=== PATIENT | female | born 1980 | race African-American/Black ===

== ENCOUNTER 2025-01-04 11:25 | Emergency (ER) | payer BC, SELFPAY ==
[2025-01-04 11:31] VITALS: BP 127/82
[2025-01-04 12:01] LABS: % Basophils 0.7 % (0-2); % Eosinophils 9.2 % (0-6); % Immature Granulocytes 0.2 % (0-0.5); % Lymphocytes 25.3 % (20.5-51.1); % Monocytes 14.5 % (1.7-9.3); % Neutrophils 50.1 % (42.2-75.2); Absolute Eosinophils 0.4 10^3/uL (0-0.7); Absolute Lymphocytes 1.1 10^3/uL (1.2-3.4); Absolute Monocytes 0.6 10^3/uL (0.1-0.6); Absolute Neutrophils 2.2 10^3/uL (1.4-6.5); Hematocrit 39.4 % (37.0-47.0); Hemoglobin 13.4 g/dL (12.0-16.0); Mean Corpuscular Hgb 27.4 pg (27.0-31.0); Mean Corpuscular Volume 80.6 fL (81.0-99.0); Mean Platelet Volume 9.5 fL (7.4-10.4); Nucleated Red Blood Cells % 0 %; Platelet Count 301 10^3/uL (130-400); Red Blood Cell Count 4.89 10^6/uL (4.20-5.40); Red Cell Dist. Width 13.3 % (11.5-14.5); White Blood Cell Count 4.4 10^3/uL (4.8-10.8)
[2025-01-04 12:10] LABS: INR 0.98; PT 13.3 Sec (11.4-14.6)
[2025-01-04 12:21] LABS: Troponin I 0.028 ng/ml
[2025-01-04 12:52] LABS: ALT (SGPT) 17 U/L (0-35); AST (SGOT) 26 U/L (14-36); Alkaline Phosphatase 64 U/L (38-126); Blood Urea Nitrogen 9 mg/dl (7-17); Calcium 9.4 mg/dl (8.4-10.2); Carbon Dioxide 25 mmol/L (22-30); Chloride 103 mmol/L (98-107); Glucose 97 mg/dl (70-99); Lipase 283 U/L (23-300); Potassium 3.8 mmol/L (3.5-5.1); Sodium 137 mmol/L (135-145); Total Bilirubin 0.7 mg/dl (0.2-1.3); Total Protein 6.9 g/dl (6.3-8.2); eGFR > 60.00
[2025-01-04 13:04] VITALS: BP 116/73
--- NOTE | 2025-01-04 13:44 | ED.GENMED ---
History of Present Illness
<Amie Norton PA-C - Last Filed: 01/04/25 19:06>
General
Chief Complaint: Chest Pain
Source: patient
Exam Limitations: none
Time Seen by Provider: 01/04/25 12:59
Nursing documentation reviewed up to this point in time: agreed with
History of Present Illness
History of Present Illness:
This is a 44 y/o female with a pmh of asthma, pericarditis, lupus, anti-phospholipid syndrome, presents to the emergency department today with concerns of chest pain x2 days. Patient states that the symptoms all started around a week ago when she
started to feel some pressure in the middle of her chest. This resolved spontaneously. Then, she stated that she ate a soy containing product 3 days ago and started develop nausea vomiting. She is allergic to soy. She then started developed
chest pressure again in a band across her chest and feels like the symptoms have been getting progressively worse. She feels like the pain is worse with sitting up. She has had pericarditis in the past which was treated as an outpatient with
NSAIDs. She currently does not follow with cardiology. Patient also notes exertional shortness of breath, lightheadedness, and dizziness with ambulating. She denies syncopal episodes. She notes that a few days ago, she did take a flight to
[place] which was 6 hours in length. She denies OCP use.
Review of Systems
<Amie Norton PA-C - Last Filed: 01/04/25 19:06>
Review of Systems
All Other Systems: ROS reviewed and negative except as documented in HPI and ROS
Phy Exam
<Amie Norton PA-C - Last Filed: 01/04/25 19:06>
Physical Exam
Physical Exam:
General: Patient is well appearing and in no acute distress; non-toxic
Skin: Warm and dry, no rashes or lesions
Head: Normocephalic, atraumatic
Eyes: Sclera non-icteric. EOMs intact.
Cardiac: Regular rate and rhythm, no murmurs
Peripheral Vascular: No lower extremity swelling or edema, 2+ dorsalis pedis pulses bilaterally
Pulm: Normal respiratory effort, no wheezes, rales, or rhonchi
Abdomen: No abdominal tenderness to palpation
Musculoskeletal: Reproducible chest tenderness noted over the external chest wall
Neuro: CN II-XII intact, no focal neurologic deficits.
Psychiatric: Appropriate mood and affect.
Scores
<Amie Norton PA-C - Last Filed: 01/04/25 19:06>
Heart Score for Chest Pain Patients
STEMI patient?: No
History: Slightly or Non-Suspicious
ECG: Normal
Age: </= 45 years
Risk Factors: No Risk Factors
Troponin: </= Normal Limit
Heart Score for Chest Pain Patients: 0
Heart Score Risk: 2.5% MACE over next 6 weeks
Course
<Amie Norton PA-C - Last Filed: 01/04/25 19:06>
Orders/Labs/Results
Orders:
Orders
01/04/25 11:25
EKG [Electrocardiogram (*1)] Urgent
Reason for Study: Chest Pain
EKG- Treatment ONCE
CR Chest - 2 Views Urgent
Comment:
Reason For Exam: chest pain
01/04/25 11:46
Complete Blood Count/With Diff Urgent
Comprehensive Metabolic Panel Urgent
HCG, Serum Qualitative Screen Urgent
Comment: ADD ON
Lipase Urgent
Prothrombin Time Urgent
Troponin I Urgent
01/04/25 13:42
D-Dimer Urgent
01/04/25 14:25
Electrocardiogram (*1) Urgent
Reason for Study: Chest Pain
01/04/25 14:32
Troponin I Urgent
01/04/25 14:59
CT Chest PE Study Urgent
Comment:
Reason For Exam: chest pain, shortness of breath, dizziness
01/04/25 15:15
Add On- LAB Urgent
Tests Added?: HCG Qual
01/04/25 16:57
Ibuprofen [Motrin] 400 mg PO NOW STA
Abnormal Lab Results
01/04/25 01/04/25
11:46 13:42
WBC 4.4 L 10^3/uL
(4.8-10.8)
MCV 80.6 L fL
(81.0-99.0)
Absolute Lymphs (auto) 1.1 L 10^3/uL
(1.2-3.4)
Monocytes % 14.5 H %
(1.7-9.3)
Eosinophils % 9.2 H %
(0-6)
D-Dimer 0.58 H ug/mlFEU
(0.00-0.50)
01/04/25 11:46
01/04/25 11:46
Vital Signs
Initial and Last Documented VS:
Initial Vital Signs
Temp Pulse Resp BP Pulse Ox
97.6 F 89 16 127/82 100
01/04/25 11:31 01/04/25 11:31 01/04/25 11:31 01/04/25 11:31 01/04/25 11:31
Last Documented Vital Signs
Temp Pulse Resp BP Pulse Ox
97.6 F 85 14 136/81 100
01/04/25 11:31 01/04/25 18:00 01/04/25 18:00 01/04/25 18:00 01/04/25 18:00
Hayleylt;Carson Freeman, DO - Last Filed: 01/04/25 18:37>
Orders/Labs/Results
Orders:
Orders
01/04/25 11:25
EKG [Electrocardiogram (*1)] Urgent
Reason for Study: Chest Pain
EKG- Treatment ONCE
CR Chest - 2 Views Urgent
Comment:
Reason For Exam: chest pain
01/04/25 11:46
Complete Blood Count/With Diff Urgent
Comprehensive Metabolic Panel Urgent
HCG, Serum Qualitative Screen Urgent
Comment: ADD ON
Lipase Urgent
Prothrombin Time Urgent
Troponin I Urgent
01/04/25 13:42
D-Dimer Urgent
01/04/25 14:25
Electrocardiogram (*1) Urgent
Reason for Study: Chest Pain
01/04/25 14:32
Troponin I Urgent
01/04/25 14:59
CT Chest PE Study Urgent
Comment:
Reason For Exam: chest pain, shortness of breath, dizziness
01/04/25 15:15
Add On- LAB Urgent
Tests Added?: HCG Qual
01/04/25 16:57
Ibuprofen [Motrin] 400 mg PO NOW STA
Abnormal Lab Results
01/04/25 01/04/25
11:46 13:42
WBC 4.4 L 10^3/uL
(4.8-10.8)
MCV 80.6 L fL
(81.0-99.0)
Absolute Lymphs (auto) 1.1 L 10^3/uL
(1.2-3.4)
Monocytes % 14.5 H %
(1.7-9.3)
Eosinophils % 9.2 H %
(0-6)
D-Dimer 0.58 H ug/mlFEU
(0.00-0.50)
01/04/25 11:46
01/04/25 11:46
Vital Signs
Initial and Last Documented VS:
Initial Vital Signs
Temp Pulse Resp BP Pulse Ox
97.6 F 89 16 127/82 100
01/04/25 11:31 01/04/25 11:31 01/04/25 11:31 01/04/25 11:31 01/04/25 11:31
Last Documented Vital Signs
Temp Pulse Resp BP Pulse Ox
97.6 F 85 14 136/81 100
01/04/25 11:31 01/04/25 18:00 01/04/25 18:00 01/04/25 18:00 01/04/25 18:00
<Amie Norton PA-C - Last Filed: 01/04/25 19:06>
MDM/Problems Addressed
Differential Diagnosis Includes:
PE, ACS, costochondritis, pericarditis
MDM/Problems Addressed:
44-year-old female with past medical history of lupus, pericarditis, antiphospholipid syndrome presents emergency department today with concerns of chest pain and shortness of breath for the past few days. Symptoms have been getting progressively
worse. Of note, she also got off a recent long flight to [place]. She does not take any blood thinners. She did take aspirin for the flight. On physical exam she is well-appearing in no acute distress her heart is regular rate and rhythm with
no murmurs. Her EKG demonstrates normal sinus rhythm with no ischemic changes no arrhythmia. In light of patient's risk factors, CT of the chest PE study was obtained which was negative for PE no evidence of pericardial effusion. In light of
patient's reproducible pain, suspect costochondritis however in light of patient's positional symptoms and recent viral symptoms pericarditis possibly as well. Advised patient to use ibuprofen next few days for pain and recommended follow-up with
cardiology. Patient stable for discharge.
Chronic conditions affecting care:
asthma, lupus
<Amie Norton PA-C - Last Filed: 01/04/25 19:06>
*Pulse Oximetry
Patient hypoxic: no
*EKG
Interpreted by ED Provider?: Yes
EKG Intrepretation Date: 01/04/25
Interpretation: normal
Comparison EKG: no comparison EKG present
Heart Rate: 83
Rate: normal
Rhythm: sinus
[place]: normal axis
QRS Pattern: normal QRS
Ischemia: no ischemia
*Critical Care Note
Total Time (30-74mins, 75-104mins- exclusive of procedures): Not Applicable
Data Reviewed
Review of Other/Old Records Reveals: Records (No previous er physician documentation to review) and Discharge Summary (No previous hospital discharge summaries for review)
Source: patient and records
<Amie Norton PA-C - Last Filed: 01/04/25 19:06>
Patient Management
Escalation/DeEscalation of care consider admission/obs:
admit not indicated
ED Attending Note
<Amie Norton PA-C - Last Filed: 01/04/25 19:06>
-
Portions of this chart may have been created with voice recognition software.� Occasional wrong word or��sound alike� substitutions may have occurred due to the inherent limitations of voice recognition software.
<Carson Freeman DO - Last Filed: 01/04/25 18:37>
ED Attending Note
Patient seen and examined by attending physician: Yes
I performed the substantive portion of visit, reviewed & personally made and approve the management plan that is documented in note by myself or NEWTON.: Yes
ED Attending Note:
I evaluated patient at bedside. She overall feels improved after NSAIDs. She does have reproducible chest wall tenderness anteriorly. Suspect costochondritis. No clear evidence for pericarditis based on EKG interpretation.
Discharge Plan
Departure
Patient Disposition: Home (Routine Discharge)
Date of Disposition: 01/04/25
Time of Disposition: 18:33
Patient with high blood pressure during this ER visit?: Yes
Condition: Good
Discharge Problem:
Chest pain
Instructions: Shortness of breath, BLOOD PRESSURE, Chest Pain
Prescriptions:
New
ibuprofen 800 mg tablet
800 mg PO Q8H PRN (Reason: Pain) Qty: 15 0RF
Referrals:
Jose Jolley MD [Active] - Call in 1-3 days for appt
Arminda Foy DO [Family Provider] -
Activity Restrictions/Additional Instructions:
I recommend being assessed by reclamation supervisor again. Can call the attached number to schedule appointment with [facility]. Ibuprofen symptoms your pharmacy. You can take 1 tablet every 8 hours as needed for pain.
PLEASE RETURN EMERGENCY DEPARTMENT SHOULD YOU EXPERIENCE ANY ACUTE WORSENING OR SYMPTOMS, FEVERS OR CHILLS, INTRACTABLE NAUSEA OR VOMITING, FAINTING SPELLS, SYNCOPAL EPISODES, OR ANY OTHER SIGNS OR SYMPTOMS.
Interventions
Interventions:
*Risk Screen - Suicide Last Done: 01/04/25 11:31
*General Assessment Last Done: 01/04/25 11:31
*Neglect/Abuse Screening Last Done: 01/04/25 11:31
ED- Fall Risk Assessment Last Done: 01/04/25 13:55
*ED COVID-19 Vaccine History Last Done: 01/04/25 11:31
*Nursing Disposition Last Done: 01/04/25 18:48
ED- Cardiac Assessment Last Done: 01/04/25 13:55
Discharge Date and Time
Discharge Date/Time: 01/04/25 18:56
Print Language: GHANAIAN
[2025-01-04 13:55] VITALS: BMI 38.3
[2025-01-04 14:24] LABS: D-Dimer 0.58 ug/mlFEU (0.00-0.50)
[2025-01-04 15:09] LABS: Troponin I 0.032 ng/ml
[2025-01-04] MEDS: MOTRIN 400 MG PO (17:02)
[2025-01-04 17:03] VITALS: BP 121/70
[2025-01-04 17:04] LABS: HCG, Serum Qualitative Screen Negative
[2025-01-04 18:00] VITALS: BP 136/81
== END 2025-01-04 18:56 | disposition home or self-care (01) ==
LOC: EMR 11:25
PROVIDERS: Physician Assistant; EMERGENCY PHYSICIAN Emergency Medicine; FAMILY PHYSICIAN Family Medicine
DX: R07.89 Other chest pain (principal); J45.909 Unspecified asthma, uncomplicated
CPT/HCPCS: 99285; 71046; 71275; 80053; 83690; 84484; 84703; 85025; 85379; 85610; 93005; Q9967

== ENCOUNTER → 2025-01-24 11:25 | Outpatient (REF) | payer BC, SELFPAY | LOC: HWRCS 11:25 | PROVIDERS: ATTENDING PHYSICIAN Internal Medicine Rheumatology | DX: M32.12 Pericarditis in systemic lupus erythematosus (principal) | CPT/HCPCS: 93306 ==